=== PATIENT | female | born 1980 | race Caucasian/White ===

== ENCOUNTER 2016-11-19 08:30 | Emergency (ER) | payer MEDICAID, OTHER ==
--- NOTE | 2016-11-19 08:50 | ED Physician Chart ---
Chief Complaint/HPI - Patient Information Date Seen:: 11/19/16 Time Seen:: 08:45 Chief Complaint:: medical clearance History of Present Illness:: location: general quality: medical clearance severity: mild duration: one day context: pt is brought in by officer for medical clearance, pt with clear speech , normal mentation, stable vital signs. no acute distress, walked into ER without any visible signs of difficulty. no pain complaint, no complaint. mod factors: none assoc s/s: none hx from pt. Allergies:: Allergies Allergy/AdvReac Type Severity Reaction Status Date / Time cephalexin [From Keflex] Allergy Verified 11/19/16 08:37 ciprofloxacin [From Cipro] Allergy Verified 11/19/16 08:37 Penicillins [PCN] Allergy Verified 11/19/16 08:37 Vitals:: Vital Signs - 8 hr 11/19/16 08:30 Temp 97.7 F HR 95 RR 16 BP 124/87 O2 Sat % 100 Historian:: Patient, Other (officer) Review:: Nurse's Note Reviewed Review of Systems - Review of Systems General/Constitutional: No fever, No chills, No weight loss, No weakness, No diaphoresis, No edema, No loss of appetite Skin: No skin lesions, No rash, No bruising Head: No headache, No light-headedness Eyes: No loss of vision, No pain, No diplopia ENT: No earache, No nasal drainage, No sore throat, No tinnitus Neck: No neck pain, No swelling, No thyromegaly, No stiffness, No mass noted Cardio Vascular: No chest pain, No palpitations, No PND, No orthopnea, No edema Pulmonary: No SOB, No cough, No sputum, No wheezing GI: No nausea, No vomiting, No diarrhea, No pain, No melena, No hematochezia, No constipation, No hematemesis G/U: No dysuria, No frequency, No hematuria Musculoskeletal: No bone or joint pain, No back pain, No muscle pain Endocrine: No polyuria, No polydipsia Psychiatric: No prior psych history, No depression, No anxiety, No suicidal ideation Hematopoietic: No bruising, No lymphadenopathy Allergic/Immuno: No urticaria, No angioedema Neurological: No syncope, No focal symptoms, No weakness, No paresthesia, No headache, No seizure, No dizziness, No confusion, No vertigo Past Medical History - Past Medical History Past Medical History: Other (opiate use) Family History: None Social History: Smoker, No Alcohol, Illicit Drug Use, Single Surgical History: None Psychiatricy History: None Medication: None Family Medical History - Family Member Mother Other Medical History: denies family medical history Physical Exam - Physical Examination General/Constitutional: Awake, Well-developed, well-nourished, Alert, No distress, GCS 15, Non-toxic appearing, Ambulatory Head: Atraumatic Eyes: Lids, conjuctiva normal, PERRL, EOMI Skin: Nl inspection, No rash, No skin lesions, No ecchymosis, Well hydrated, No lymphadenopathy ENMT: External ears, nose nl, Nasal exam nl, Lips, teeth, gums nl Neck: Nontender, Full ROM w/o pain, No JVD, No nuchal rigidity, No bruit, No mass, No stridor Respiratory: Nl effort/Exclusion, Clear to Auscultation, No Wheeze/Rhonchi/Rales Cardio Vascular: RRR, No murmur, gallop, rubs, NL S1 S2 GI: No tenderness/rebounding/guarding : No CVA tenderness Extremities: No tenderness or effusion, Full ROM, normal strength in all extremities, No edema, Normal digits & nails Neuro/Psych: Alert/oriented, Normal sensory exam, Normal motor strength, Judgement/insight normal, Normal gait, No focal deficits Misc: normal gait, Normal back, No paraspinal tenderness Assessment - Assessment General Assessment: stable patient here for medical clearance, nursing report stable vital signs during ER stay. ED Septic Shock - . Is Septic Shock (SBP<90, OR Lactate>4 mmol\L) present?: No - <6hrs of presentation: Vital Signs: Vital Signs - 8 hr 11/19/16 08:30 Temp 97.7 F HR 95 RR 16 BP 124/87 O2 Sat % 100 Reassessment (Disposition) - Reassessment Reassessment:: pt stable while in ER Reassessment Condition:: Unchanged - Diagnosis Diagnosis:: medical clearance, ok to book - Aftercare/Follow up Instructions Notes:: go to clinic for recheck as needed. - Patient Disposition Discharge/Transfer:: Home Condition at Disposition:: Stable
== END 2016-11-19 08:50 | disposition still patient (30) ==
LOC: ER 08:30
DX: Z02.89 Encounter for other administrative examinations (principal); F17.200 Nicotine dependence, unspecified, uncomplicated; Z88.1 Allergy status to other antibiotic agents; Z88.0 Allergy status to penicillin
CPT/HCPCS: Z7502